=== PATIENT | male | born 2000 | race Caucasian/White ===

== ENCOUNTER 2024-04-29 16:15 | Emergency (ER) | payer SELFPAY ==
--- NOTE | 2024-04-29 16:18 | XRR_ITS ---
PROCEDURE INFORMATION: Exam: XR Chest Exam date and time: 04/29/2024 4:32 PM Age: 23 years old Clinical indication: Cough TECHNIQUE: Imaging protocol: Radiologic exam of the chest. Views: 1 view. COMPARISON: No relevant prior studies available. FINDINGS: Lungs: Unremarkable. No consolidation. Pleural spaces: Unremarkable. No pleural effusion. No pneumothorax. Heart/Mediastinum: Unremarkable. No cardiomegaly. Bones/joints: Unremarkable. XR/XR chest 1V portable [id number] IMPRESSION: No acute findings.
[2024-04-29 16:44] VITALS: BP 121/76; PULSE 77; RESP 16; TEMP 36.9; O2SAT 99; BMI 22.1
--- NOTE | 2024-04-29 17:14 | W.ED.URI ---
HPI - URI/Sore Throat General: Chief Complaint: Upper Respiratory Infection Stated Complaint: cough, fever, running noise Time Seen by Provider: 04/29/24 17:06 Source: patient Mode of arrival: ambulatory Limitations: no limitations History of Present Illness: Patient is a 23-year-old male with no pertinent past medical history reporting to the emergency department complaining of upper respiratory symptoms for the past 3 days. Reports that his stepmom has been sick. He is reporting to me a nonproductive cough, low-grade fevers, headache, sore throat, and a runny nose. He has not taken anything for his symptoms. Does not report a history of asthma but does state he has had a pneumonia in the past, he does not feel that this is as severe. Currently 99% SpO2 on room air, afebrile, normal blood pressure and heart rate. No acute distress noted. Swabs pending at this time. MD elicited complaint: fever, cough, sore throat and rhinorrhea Pertinent past history: pneumonia Onset (ago): day(s) (3) Consistency: constant Severity: moderate Description of mucous: clear Able to tolerate fluids by mouth: Yes Exacerbating factors: nothing Relieving factors: nothing Context: sick contacts Associated symptoms: Reports fever(s) and headache(s); Deny abdominal pain, chills, chest pain, diarrhea, ear or mastoid pain, nausea or vomiting Treatments prior to arrival: none Related Data Allergies Allergy/AdvReac Type Severity Reaction Status Date / Time No Known Allergies Allergy Verified 04/29/24 16:47 Review of Systems General: Reports: 10 or more systems reviewed and unremarkable except in HPI and below Const: Reports: fever(s); Denies: chills or fatigue Eyes: Denies: change in vision ENMT: Reports: throat pain and nasal discharge; Denies: ear or mastoid pain Card: Denies: chest pain, palpitations, swelling of feet/ankles or lightheadedness Resp: Reports: non-productive cough; Denies: dyspnea or wheezing GI: Denies: abdominal pain, nausea, vomiting, diarrhea or constipation : Denies: flank pain, difficulty urinating, dysuria or urinary frequency Musc: Denies: neck pain, back pain or joint pain Skin/Breast: Denies: rash Neuro: Reports: headache(s); Denies: numbness in extremities or weakness in extremities Physical Exam Const: COMMON NORMALS: no acute distress and healthy appearing GENERAL APPEARANCE: cooperative, comfortable and well developed HENMT: COMMON NORMALS: normocephalic, atraumatic, hearing grossly normal bilaterally, external ears normal, EAC's normal, TM's normal bilaterally, Normal external nose present and Normal nasal mucous membranes and turbinates present HEAD & SCALP: normal to inspection, normocephalic and atraumatic FACE & SINUS: normal facial exam and sinuses nontender NOSE: Normal external nose present, Normal nares present, No nasal polyps present and Normal nasal mucous membranes and turbinates present EXTERNAL EAR: Yes external ears normal EXTERNAL AUDITORY CANAL: EAC's normal TYMPANIC MEMBRANE: TM's normal bilaterally MOUTH: Normal oral and palatal mucosa present THROAT: posterior oropharynx normal and tonsils normal Eye: COMMON NORMALS: EOMs intact bilaterally, conjunctivae normal and normal visual hayes by confrontation GENERAL EYE: appearance normal, both eyes and all related structures CONJUNCTIVA: Yes conjunctivae normal Neck/C-Spine: COMMON NORMALS: full ROM, no lymphadenopathy, supple and no meningeal signs GENERAL: Yes normal visual inspection Chest: COMMONS NORMALS: normal inspection of the chest Resp: COMMON NORMALS: normal respiratory effort and clear to auscultation bilaterally EFFORT & INSPECTION: Yes able to speak in complete sentences AUSCULTATION: clear to auscultation bilaterally Cardio: COMMON NORMALS: regular rate, regular rhythm, S1 normal heart sound present and S2 normal heart sound present RATE: regular rate RHYTHM: regular rhythm HEART SOUNDS: S1 normal heart sound present, S2 normal heart sound present, no gallops, no murmurs and no rubs GI: COMMON NORMALS: Soft to palpation and No hepatosplenomegaly present INSPECTION: Yes normal to inspection PALPATION: Yes Soft to palpation and Yes No hepatosplenomegaly present Extremity: COMMON NORMALS: normal to inspection, full ROM and capillary refill normal Neuro: MENINGEAL SIGNS: Yes no meningeal signs Skin: COMMON NORMALS: no rashes or lesions noted GENERAL SKIN EXAM: no rashes or lesions noted Course Vital Signs: Vital signs: Vital Signs Temperature 98.5 F 04/29/24 16:44 Pulse Rate 77 04/29/24 17:23 Respiratory Rate 16 04/29/24 17:23 Blood Pressure 124/81 04/29/24 17:23 Pulse Oximetry 98 12/18/24 17:23 Oxygen Delivery Me thod Room Air 04/29/24 17:23 MDM - URI/Sore Throat Medical Decision Making Patient presenting with respiratory symptoms X-ray was normal. Swabs pending at this time, physical examination completely normal. With reported sick contact exposure this is likely viral, will have patient treat conservatively at home with Tylenol and ibuprofen, and drink plenty of fluids. He will return with any new or worsening, patient comfortable discharge home at this time. He will be called with abnormalities with his swab. Lab Data Radiology Impressions Chest X-Ray 04/29/24 16:18 IMPRESSION: No acute findings. All radiology interpretation(s) finalized by discharge Discharge Plan Discharge Patient Disposition: Home Clinical Impression: Viral infection Condition: Stable Discharge Orders: Discharge ED (Routine); Ordered 04/29/24 Ordered By: Kade Reeves Referrals: Alla Ricci FNP [Primary Care Provider] - Patient Instructions: Viral Syndrome (ED) Activity Restrictions/Additional Instructions: See attached patient instructions for further education. Ibuprofen and Tylenol for fevers or bodyaches. Drink plenty of fluids. Enact contagion precaution. Follow-up with primary care and return with any new or worsening. 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
[2024-04-29 17:23] VITALS: BP 124/81; PULSE 77; RESP 16; O2SAT 98
[2024-04-29 18:03] VITALS: BP 119/62; PULSE 82; RESP 16; O2SAT 98
[2024-04-29 19:03] LABS: Covid PCR NEGATIVE (Negative); Influenza A NEGATIVE (Negative); Influenza B NEGATIVE (Negative); Respiratory Syncytial Virus Ce NEGATIVE (Negative)
== END 2024-04-29 18:04 | disposition home or self-care (01) ==
PROVIDERS: Emergency Medicine; Emergency Provider Physician Assistant; Family Provider Nurse Practitioner; PCP Nurse Practitioner
DX: B34.9 Viral infection, unspecified (principal)
CPT/HCPCS: 0241U; 71045; 99284

== ENCOUNTER 2024-07-07 23:48 | Emergency (ER) | payer SELFPAY ==
[2024-07-07 23:51] VITALS: BP 107/59; PULSE 108; RESP 14; TEMP 37.7; O2SAT 95; BMI 23.6
[2024-07-08 00:38] VITALS: BP 125/57; PULSE 107; RESP 18; O2SAT 94
--- NOTE | 2024-07-08 00:39 | ED_ITS ---
HPI - URI/Sore Throat General: Chief Complaint: Upper Respiratory Infection Stated Complaint: Fever\Chills\ Time Seen by Provider: 07/08/24 00:34 Source: patient Mode of arrival: ambulatory Limitations: no limitations History of Present Illness: Patient is a 24-year-old male who presents the emergency department complaining of illness for the past few days. No known sick contacts. He is reporting body aches, weakness, change in appetite, cough, nausea vomiting, and a headache. He has not taken any medications for his symptoms. Mildly tachycardic, states he has not been drinking much water. 99.9 temp in triage. No concerning or pertinent past medical history reported. MD elicited complaint: other (Body aches, weakness, change in appetite, cough, n ausea/vomiting, headache) Onset (ago): day(s) (3) Consistency: constant Severity: mild Able to tolerate fluids by mouth: Yes Exacerbating factors: nothing Relieving factors: nothing Associated symptoms: Reports chills, headache(s), nausea and vomiting; Deny abdominal pain, chest pain, diarrhea, ear or mastoid pain or fever(s) Related Data Allergies Allergy/AdvReac Type Severity Reaction Status Date / Time No Known Allergies Allergy Verified 07/07/24 23:57 Review of Systems General: Reports: 10 or more systems reviewed and unremarkable except in HPI and below Const: Reports: chills, body aches and change in appetite; Denies: fever(s) or fatigue Eyes: Denies: change in vision ENMT: Denies: throat pain, ear or mastoid pain or nasal discharge Card: Denies: chest pain, palpitations, swelling of feet/ankles or lightheadedness Resp: Reports: non-productive cough; Denies: dyspnea, productive cough or wheezing GI: Reports: nausea and vomiting; Denies: abdominal pain, diarrhea or constipation Musc: Reports: muscle weakness; Denies: neck pain, back pain or joint pain Skin/Breast: Denies: rash Neuro: Reports: headache(s); Denies: numbness in extremities or weakness in extremities Physical Exam Const: COMMON NORMALS: no acute distress and healthy appearing GENERAL APPEARANCE: cooperative, comfortable and well developed HENMT: COMMON NORMALS: normocephalic, atraumatic, hearing grossly normal bilaterally, external ears normal, EAC's normal, TM's normal bilaterally, Normal external nose present and Normal nasal mucous membranes and turbinates present HEAD & SCALP: normal to inspection, normocephalic and atraumatic FACE & SINUS: normal facial exam and sinuses nontender NOSE: Normal external nose present, Normal nares present, No nasal polyps present and Normal nasal mucous membranes and turbinates present EXTERNAL EAR: Yes external ears normal EXTERNAL AUDITORY CANAL: EAC's normal TYMPANIC MEMBRANE: TM's normal bilaterally MOUTH: Normal oral and palatal mucosa present THROAT: posterior oropharynx normal and tonsils normal Eye: COMMON NORMALS: EOMs intact bilaterally, conjunctivae normal and normal visual hayes by confrontation GENERAL EYE: appearance normal, both eyes and all related structures CONJUNCTIVA: Yes conjunctivae normal Neck/C-Spine: COMMON NORMALS: full ROM, no lymphadenopathy, supple and no meningeal signs GENERAL: Yes normal visual inspection Chest: COMMONS NORMALS: normal inspection of the chest Resp: COMMON NORMALS: normal respiratory effort and clear to auscultation bilaterally EFFORT & INSPECTION: Yes able to speak in complete sentences AUSCULTATION: clear to auscultation bilaterally Cardio: COMMON NORMALS: regular rate, regular rhythm, S1 normal heart sound present and S2 normal heart sound present RATE: regular rate RHYTHM: regular rhythm HEART SOUNDS: S1 normal heart sound present, S2 normal heart sound present, no gallops, no murmurs and no rubs GI: COMMON NORMALS: Soft to palpation and No hepatosplenomegaly present INSPECTION: Yes normal to inspection PALPATION: Yes Soft to palpation and Yes No hepatosplenomegaly present Extremity: COMMON NORMALS: normal to inspection, full ROM and capillary refill normal Neuro: MENINGEAL SIGNS: Yes no meningeal signs Skin: COMMON NORMALS: no rashes or lesions noted GENERAL SKIN EXAM: no rashes or lesions noted Course Vital Signs: Vital signs: Vital Signs Temperature 99.9 F H 07/07/24 23:51 Pulse Rate 107 H 07/08/24 00:38 Respiratory Rate 18 07/08/24 00:38 Blood Pressure 125/57 07/08/24 00:38 Pulse Oximetry 94 07/08/24 00:38 Oxygen Delivery Me thod Room Air 07/08/24 00:38 MDM - URI/Sore Throat Medical Decision Making Patient had multiple upper respiratory symptoms to report, positive for flu A. Was given Motrin here for his temperature, likely he is dehydrated to so told him to drink plenty of fluids and start alternating medications. Will be provided a work note. All other questions and concerns addressed he verbalized understanding to return precautions. Lab Data Laboratory Results Influenza A (PCR) Positive (Negative) 07/08/24 00:00 Influenza Type B (PCR) Negative (Negative) 07/08/24 00:00 RSV (PCR) Negative (Negative) 07/08/24 00:00 SARS-CoV-2 (PCR) Negative (Negative) 07/08/24 00:00 No radiology studies performed this visit Discharge Plan Discharge Patient Disposition: Home Clinical Impression: Influenza Condition: Stable Discharge Orders: Discharge ED (Routine); Ordered 07/08/24 Ordered By: Kade Reeves Patient Instructions: Influenza (ED) Activity Restrictions/Additional Instructions: Tylenol and ibuprofen for body aches and fevers. Make sure that you are drinking plenty of fluids. Contact precaution as you have been diagnosed with flu A. Work note provided. Follow-up with primary care and return with any new or worsening. 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
[2024-07-08] MEDS: ibuprofen 600 mg Tablet PO (00:43)
[2024-07-08 00:44] LABS: Influenza A POSITIVE (Negative); Influenza B NEGATIVE (Negative); Respiratory Syncytial Virus Ce NEGATIVE (Negative); SARS-CoV-2 PCR NEGATIVE (Negative)
[2024-07-08 01:32] VITALS: BP 120/62; PULSE 94; RESP 16; O2SAT 98
== END 2024-07-08 01:15 | disposition home or self-care (01) ==
PROVIDERS: Emergency Provider Physician Assistant
DX: J10.1 Influenza due to other identified influenza virus with other respiratory manifestations (principal); Z11.52 Encounter for screening for COVID-19
CPT/HCPCS: 87637; 99283

== ENCOUNTER 2024-09-02 06:42 | Emergency (ER) | payer SELFPAY ==
[2024-09-02 06:51] VITALS: BP 138/87; PULSE 65; RESP 16; TEMP 36.8; O2SAT 98; BMI 20.9
--- NOTE | 2024-09-02 06:55 | XRR_ITS ---
PROCEDURE INFORMATION: Exam: XR Right Hand Exam date and time: 09/02/2024 7:00 AM Age: 24 years old Clinical indication: Injury or trauma; Other: Punched a board; Blunt trauma (contusions or hematomas); Hand; Right; Additional info: Pain TECHNIQUE: Imaging protocol: Radiologic exam of the right hand. Views: 1 or 2 views. COMPARISON: No relevant prior studies available. FINDINGS: Bones/joints: Normal. Soft tissues: Normal. XR/XR hand RT 2V [id number] IMPRESSION: No acute findings.
--- NOTE | 2024-09-02 07:05 | ED_ITS ---
HPI - Extremity Problem General: Chief complaint: Extremity Injury, Upper Stated complaint: R hand pain Time Seen by Provider: 09/02/24 06:56 History of Present Illness: 24-year-old right-handed male reports he got upset last night and punched a wall. Unfortunately there was a stud behind the drywall. He feels like he bruised the PIP joint of his index finger and has pain at the 4th and 5th MCP region. He has a small abrasion over the fourth MCP. No penetrating injuries. He is able to make a fist. There is no rotation of the fingers. No sensory changes. No deformities are noted on visual inspection. Denies other injuries in the wrist forearm elbow or anywhere else. Related Data Allergies Allergy/AdvReac Type Severity Reaction Status Date / Time No Known Allergies Allergy Verified 07/07/24 23:57 Review of Systems Narrative: Review of systems is negative other than stated in HPI. Physical Exam Narrative: EXAM NARRATIVE: Right upper extremity exam Appears to have a contusion overlying right PIP on the dorsal aspect. He can flex and extend the joint. The extensor and flexor tendons are intact. There is tenderness just at the 4th and 5th MCPs and slightly proximal. Patient can make a fist and there is no rotation or angulation of the fingers. The wrist is nontender. His neurovascular status is normal in the right upper extremity. Const: COMMON NORMALS: no limitations, alert and well nourished EXAM LIMITATIONS: no altered mental status HENMT: COMMON NORMALS: external ears normal EXTERNAL EAR: Yes external ears normal MOUTH: no muffled voice Neck/C-Spine: GENERAL: Yes normal visual inspection and Yes trachea midline Resp: COMMON NORMALS: normal respiratory effort Neuro: COMMON NORMALS: moves all extremities, no focal motor deficits and no sensory deficits noted SENSORIUM/ORIENTATION: Yes alert SPEECH: speech normal Psych: COMMON NORMALS: mental status grossly normal, Normal thought process present, cooperative, normal affect and speech normal SPEECH: Yes normal speech THOUGHT PROCESS: Normal thought process present Skin: COMMON NORMALS: turgor normal and no jaundice GENERAL SKIN EXAM: turgor normal Course Vital Signs: Vital signs: Vital Signs Temperature 98.2 F 09/02/24 06:51 Pulse Rate 65 09/02/24 06:51 Respiratory Rate 16 09/02/24 06:51 Blood Pressure 138/87 09/02/24 06:51 Pulse Oximetry 98 09/02/24 06:51 Oxygen Delivery Me thod Room Air 09/02/24 06:51 MDM - Extremity (Nontraumatic) Medical Decision Making Differential diagnosis includes contusion, sprain, fracture. X-rays of the right hand were performed. EP interpretation: No fractures or dislocations noted Recommend RICE therapy XR interpretation done by ED provider, pending radiology final review Discharge Plan Discharge Patient Disposition: Home Condition: Stable Discharge Orders: Discharge ED (Routine); Ordered 09/02/24 Ordered By: Richard Mccullough Discharge Activity: Increase activity as tolerated Patient Instructions: Contusion in Adults (ED), P.R.I.C.E. Treatment (ED), Pain Management Activity Restrictions/Additional Instructions: Hand Contusion Discharge Instructions Discharge Instructions for Hand Contusion Pain Management: - Apply ice to the affected area for 15-20 minutes every 2-3 hours during the first 48 hours to reduce swelling and pain.[1] https://pubmed.ncbi.nlm.nih.gov /50099856 - Cesi-dxp-ysgzato analgesics such as acetaminophen or ibuprofen can be used to manage pain. Follow dosing instructions on the packaging.[1] https://pubmed.ncbi.nlm.nih.gov/40357736 - Topical treatments like FLECTOR (diclofenac epolamine) can be applied to the most painful area twice a day, but avoid application to damaged or non-intact skin.[2] https://dailymed.nlm.nih.gov/dailymed/drugInfo.cfm?imuco=0d45p941-e7sw-[email or web address] -[email or web address] Activity Modification: - Rest the injured hand and avoid activities that may exacerbate pain or swelling.[1] https://pubmed.ncbi.nlm.nih.gov/07619715 - Gradually resume normal activities as pain and swelling decrease. Avoid heavy lifting or strenuous activities until fully healed.[1] https://pubmed.ncbi.nlm.nih.gov/81264633 Edema Control: - Elevate the hand above heart level when possible to reduce swelling.[3] https://pubmed.ncbi.nlm.nih.gov/98718773 - Use compression bandages if recommended by your healthcare provider.[3] https://pubmed.ncbi.nlm.nih.gov/51879822 Follow-Up Care: - Monitor for signs of infection such as increased redness, warmth, or pus. Seek medical attention if these symptoms occur.[1] https:/ /pubmed.ncbi.nlm.nih.gov/94255438 - Schedule a follow-up appointment with your primary care physician or a hand specialist if pain persists or if there is no improvement within a week.[1] https://pubmed.ncbi.nlm.nih.gov/15006558 Additional Instructions: - Keep the injured hand clean and dry. Avoid soaking the hand in water until fully healed.[1] https://pubmed.ncbi.nlm.nih.gov/64359400 - If using topical treatments like LICART (diclofenac epolamine), ensure proper application and avoid contact with eyes. 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
[2024-09-02 07:21] VITALS: BP 129/81; PULSE 81; O2SAT 99
== END 2024-09-02 07:21 | disposition home or self-care (01) ==
PROVIDERS: Emergency Provider Emergency Medicine
DX: S60.221A Contusion of right hand, initial encounter (principal); W22.01XA Walked into wall, initial encounter
CPT/HCPCS: 73120; 99283